=== PATIENT | female | born 1940 | race African-American/Black ===

== ENCOUNTER → 2017-03-22 | Outpatient (CLI) | payer OTHER, BC ==
[~2017-03-22] MED LIST: ARICEPT10 MG PO; ASPIR 8181 MG PO; ATORVASTATIN CA40 MG PO; COZAAR 50 MG TA50 M2 PO; LOPRESSOR50 MG PO; LORTAB 5-325 M1 EACH PO; NICOTINE TRANSD21 M1; NIFEDICAL XL60 MG PO; NITROGLYCERIN0.4 MG SUBLING; NORCO 5-325 TA1 EACH PO; TRAMADOL 50 MG50 MG PO; VITAMIN D1000 UNI1 PO
== END ==
LOC: RAD 03-02 08:32
DX: Z12.31 Encounter for screening mammogram for malignant neoplasm of breast (principal)

== ENCOUNTER 2018-01-16 19:35 | Inpatient (IN) | payer OTHER, BC ==
[~2018-01-16] VITALS: Ht 175.3 cm; Wt 49.1 kg
--- NOTE | ~2018-01-16 | EKG ---
[place] [address] [facility] [place] [address] ELECTROCARDIOGRAM REPORT Name: KIP FU Room #: 430-P [facility] [place] .R.#: [id number] Admission: 01/16/18 Attend Phys: Rudi Arias MD Discharge: Date of : 38 Report #: [id number] THIS REPORT FOR: //name// [facility] ED Test Date: 2018-01-16 Test Time: 20:09:17 Pat Name: KIP FU Department: Room: Gender: F [employer]: wes : 1940 Requested By: Damaris Cristina Order Number: [id number] MD: Deshawn Churhc Measurements Intervals Thor Rate: 69 P: 73 UT: 154 QRS: 28 QRSD: 112 T: 241 QT: 451 QTc: 484 Interpretive Statements Sinus rhythm LVH with secondary repolarization abnormality Inferior infarct, old Compared to ECG 06/19/2015 17:41:34 No significant change was found Electronically Signed On 01-17-2018 7:48:22 CDT by Deshawn Church [email or web address] <ELECTRONICALLY SIGNED> By: Deshawn Church MD, [facility] 01/17/18 0748 08 08 Deshawn Church MD, [facility] /EPI
[2018-01-16 20:13] VITALS: BP 132/61
[2018-01-16 20:20] LABS: ABSOLUTE NEUTROPHILS 5.6 thou/uL (1.4-8.2); BASOPHILS 0.8 % (0.0-2.0); EOSINOPHILS 1.1 % (0.0-3.0); HEMATOCRIT 39.8 % (37.0-47.0); HEMOGLOBIN 13.5 gm/dL (12.0-15.0); LYMPHOCYTES 19.7 % (24.0-44.0); MCH 28.2 pg (26.0-34.0); MCHC 33.9 g/dL (28.0-37.0); MCV 83.2 fL (80.0-100.0); MONOCYTES 10.9 % (1.0-8.0); PLATELET COUNT 307 thou/uL (150-400); POLYS 67.5 % (36.0-66.0); RBC 4.79 mil/uL (4.20-5.00); RDW 14.8 % (10.5-14.5); WBC 8.4 thou/uL (4.0-11.0)
[2018-01-16 20:28] LABS: ANION GAP 12 mmol/L (7-16); BUN 9 mg/dL (7-18); CALCIUM 9.2 mg/dL (8.5-10.1); CHLORIDE 104 mmol/L (98-107); CO2 26 mmol/L (21-32); GLUCOSE 136 mg/dL (74-106); SODIUM 142 mmol/L (136-145)
[2018-01-16 20:38] LABS: POTASSIUM 2.4 mmol/L (3.5-5.1)
[2018-01-16 20:41] LABS: ALBUMIN 3.2 g/dL (3.4-5.0); LIPASE 128 U/L (73-393); SGOT 21 U/L (15-37); SGPT 18 U/L (30-65); TOTAL BILIRUBIN 0.8 mg/dL (<0.1-1.0); TOTAL PROTEIN 8.1 g/dL (6.4-8.2); TROPONIN-I < 0.04 ng/mL (<0.06)
[2018-01-16 22:18] VITALS: BP 144/69
[2018-01-16] MEDS ORDERED: NAMENDA 10 MG T10 MG PO (22:49)
[2018-01-16] MEDS ORDERED: ARIMIDEX (22:56)
[2018-01-16 23:30] VITALS: BP 134/66
[2018-01-17 04:15] LABS: CALCIUM 8.5 mg/dL (8.5-10.1); CREATININE 0.8 mg/dL (0.6-1.0); MAGNESIUM 1.4 mg/dL (1.8-2.4)
[2018-01-17 04:22] LABS: POTASSIUM 2.8 mmol/L (3.5-5.1)
[2018-01-17 04:54] VITALS: BP 115/63
[2018-01-17 07:50] VITALS: BP 157/113
[2018-01-17 19:33] VITALS: BP 187/118
[2018-01-18 01:04] LABS: URINE BILIRUBIN NEGATIVE (Negative); URINE BLOOD 1+ (Negative); URINE CLARITY CLEAR; URINE COLOR YELLOW; URINE GLUCOSE-RANDOM* NEGATIVE (Negative); URINE KETONES NEGATIVE (Negative); URINE LEUKOCYTES-REFLEX NEGATIVE (Negative); URINE NITRITE-REFLEX NEGATIVE (Negative); URINE PROTEIN (DIPSTICK) 1+ (Negative); URINE SPECIFIC GRAVITY 1.015 (1.005-1.035)
[2018-01-18 01:20] LABS: BACTERIA-REFLEX 1-9 Few /HPF (None Seen); CASTS None Seen /LPF (None Seen); CRYSTALS None Seen /LPF (None Seen); MUCUS 0-3 Light strn/LPF (None Seen); SQUAMOUS 0-3 Few /LPF (0-3); URINE RBC 3-10 Few /HPF (0-2); URINE WBC-REFLEX 6-15 Few /HPF (0-5)
[2018-01-18 03:30] VITALS: BP 153/107
[2018-01-18 08:19] LABS: MAGNESIUM 1.5 mg/dL (1.8-2.4); POTASSIUM 3.6 mmol/L (3.5-5.1)
[2018-01-18] MEDS ORDERED: MELATONIN5 M1 PO (14:26)
[2018-01-18 14:29] VITALS: BP 153/107
[2018-01-18 14:40] VITALS: BP 153/107
== END 2018-01-18 15:24 | disposition hospice, home (50) | DRG 641 ==
LOC: ER 19:35 → 4E 21:19 → EROBS 21:19 → 4E 22:18
PROVIDERS: Hospitalist; Nurse Practitioner Acute Care; Nurse Practitioner Family
DX: E87.6 Hypokalemia (principal); E46 Unspecified protein-calorie malnutrition; Z68.1 Body mass index [BMI] 19.9 or less, adult; R45.1 Restlessness and agitation; I10 Essential (primary) hypertension; E78.00 Pure hypercholesterolemia, unspecified; G30.9 Alzheimer's disease, unspecified; F02.80 Dementia in other diseases classified elsewhere, unspecified severity, without behavioral disturbance, psychotic disturbance, mood disturbance, and anxiety; I25.10 Atherosclerotic heart disease of native coronary artery without angina pectoris; Z79.899 Other long term (current) drug therapy; Z79.82 Long term (current) use of aspirin; Z88.0 Allergy status to penicillin; Z95.5 Presence of coronary angioplasty implant and graft; Z90.710 Acquired absence of both cervix and uterus; Z90.12 Acquired absence of left breast and nipple; Z87.891 Personal history of nicotine dependence; Z85.3 Personal history of malignant neoplasm of breast
CPT/HCPCS: 10084